=== PATIENT | male | born 1995 | race Caucasian/White ===

== ENCOUNTER → 2023-08-15 15:12 | Outpatient (CLI) | payer OTHER, SELFPAY ==
--- NOTE | 2023-08-15 15:35 | US_ITS ---
WS: [id number] TESTICULAR ULTRASOUND HISTORY: GROIN PAIN COMPARISON: None available. TECHNIQUE: Real-time and color Doppler imaging or utilized to perform a testicular ultrasound. Right testicle: 4.0 cm x 2.7 cm x 2.1 cm. Normal size and echogenicity. No mass or torsion. Normal color Doppler is present throughout. Systolic and diastolic velocities are both present. No significant hydrocele. Right epididymis: Normal epididymis with no increased vascularity. Left testicle: 4.0 cm x 2.9 cm x 2.1 cm. Normal size and echogenicity. No mass or torsion. There are few scattered echogenic foci throughout t he testicle. Normal color Doppler is present throughout. Systolic and diastolic velocities are both present. No significant hydrocele. Left epididymis: Normal epididymis with no increased vascularity. US/US scrotum [id number] IMPRESSION: NORMAL TESTICULAR ULTRASOUND.
== END | disposition home or self-care (01) ==
PROVIDERS: PCP Family Medicine; Visit Provider Family Medicine
DX: R10.30 Lower abdominal pain, unspecified (principal)
CPT/HCPCS: 76870

== ENCOUNTER 2024-01-04 16:43 | Outpatient (CLI) | payer OTHER, SELFPAY ==
--- NOTE | 2024-01-04 16:50 | MR_ITS ---
WS: [id number] MRI BRAIN WITHOUT CONTRAST HISTORY: TINGLING, BALANCE PROBLEM, PARESTHESIA COMPARISON: None available. TECHNIQUE: Diffusion imaging, multiplanar T1, T2 and FLAIR imaging obtained. No evidence for acute infarct or hemorrhage. Barrett-white matter differentiation is normal. No remote or acute infarcts are volume loss. Ventricles and extra-axial spaces are normal. No inferior displacement of cerebellar tonsils. The sella turcica and pituitary gland are unremarkabl e. Size and signal of the intraorbital optic nerves is symmetric and normal. There is a small amount of fluid in the RIGHT periorbital sheath which is considered normal also. No signal abnormality on this examination. Dural venous sinuses and [place] demonstrate no abnormality on this unenhanced studies. Paranasal sinuses: Minimal maxillary sinus mucoperiosteal thickening. Mastoid air cells: Normal. Calvarium and scalp: Intact. MR/MR head wo con* [id number] IMPRESSION: 1. No acute infarct or prior infarct. 2. No signal abnormalities to suggest demyelinating disease or small vessel di sease. 3. Visualized portions of the optic nerves are normal on this unenhanced MRI b rain.
== END 2024-01-04 16:44 | disposition home or self-care (01) ==
LOC: RAD 16:44
PROVIDERS: PCP Family Medicine; Visit Provider Family Medicine
DX: R20.2 Paresthesia of skin (principal); R27.9 Unspecified lack of coordination
CPT/HCPCS: 70551

== ENCOUNTER → 2024-04-01 09:30 | Outpatient (BNVA) | payer OTHER, SELFPAY | PROVIDERS: PCP Family Medicine; Referring Provider Family Medicine; Visit Provider Psychiatry & Neurology Neurology | DX: R55 Syncope and collapse (principal); E55.9 Vitamin D deficiency, unspecified; E56.9 Vitamin deficiency, unspecified; R26.89 Other abnormalities of gait and mobility; R25.2 Cramp and spasm; R27.8 Other lack of coordination | CPT/HCPCS: 36415; 82306; 82525; 82565; 82728; 83090; 83540; 83550; 84207; 84520 ==

== ENCOUNTER 2024-04-04 10:41 | Outpatient (CLI) | payer OTHER, SELFPAY | END 2024-04-04 10:42 | disposition home or self-care (01) | LOC: LAB 10:44 | PROVIDERS: Visit Provider Psychiatry & Neurology Neurology | DX: R55 Syncope and collapse (principal); R26.89 Other abnormalities of gait and mobility; R27.8 Other lack of coordination | CPT/HCPCS: 82525 ==

== ENCOUNTER → 2024-06-10 12:33 | Outpatient (BNVA) | payer OTHER, SELFPAY | PROVIDERS: PCP Family Medicine; Referring Provider Psychiatry & Neurology Neurology; Visit Provider Internal Medicine Cardiovascular Disease | DX: R07.9 Chest pain, unspecified (principal); R94.31 Abnormal electrocardiogram [ECG] [EKG] | CPT/HCPCS: 93005 ==